=== PATIENT | male | born 1965 ===

== ENCOUNTER 2018-05-08 21:18 | Observation (INO) | payer OTHER ==
[2018-05-08] MEDS ORDERED: Sodium Chloride 0.9% 1,000 ML IV STA (22:21)
--- NOTE | 2018-05-08 22:22 | ED PDOC ---
Lower Extremity Pain/Injury Time Seen by Provider: 05/08/18 21:30 Chief Complaint (Nursing): Lower Extremity Problem/Injury Chief Complaint (Provider): Lower Extremity Problem/Injury History Per: Patient, Family History/Exam Limitations: no limitations, language barrier Onset/Duration Of Symptoms: Days (x2) Additional Complaint(s): 52 y/o male with history of HTN and diabetes presents to ED complaining of left foot pain, onset x2 days ago. 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 Since then he has noticed the pain and swelling to his left foot. Patient denies fever, vomiting, diarrhea. Patient admits to not being compliant with diabetic medication and has not taken his medicine in over x2 months. PMD: Rufino @ [facility] [place] Past Medical History Reviewed: Historical Data, Nursing Documentation, Vital Signs Vital Signs: Last Vital Signs Temp 98.2 F 05/08/18 21:34 Pulse 74 05/08/18 21:34 Resp 18 05/08/18 21:34 BP 176/105 H 05/08/18 21:34 Pulse Ox 98 05/08/18 21:34 - Medical History PMH: Diabetes, HTN - Surgical History Surgical History: Tonsillectomy - Family History Family History: States: Unknown Family Hx - Social History Current smoker - smoking cessation education provided: No Alcohol: Occasional (weekends) Drugs: Denies - Home Medications Home Medications: Ambulatory Orders Medication Instructions Recorded RX: No Known Home Med 05/08/18 - Allergies Allergies/Adverse Reactions: Allergies Allergy/AdvReac Type Severity Reaction Status Date / Time No Known Allergies Allergy Verified 05/08/18 21:34 Review of Systems ROS Statement: Except As Marked, All Systems Reviewed And Found Negative Constitutional: Negative for: Fever Gastrointestinal: Negative for: Vomiting, Diarrhea Musculoskeletal: Positive for: Foot Pain (left) Physical Exam - Reviewed Nursing Documentation Reviewed: Yes Vital Signs Reviewed: Yes - Physical Exam Appears: Positive for: Well, Non-toxic, No Acute Distress Head Exam: Positive for: ATRAUMATIC, NORMOCEPHALIC Skin: Positive for: Normal Color, Warm, DRY Eye Exam: Positive for: EOMI, Normal appearance, PERRL ENT: Positive for: Normal ENT Inspection Neck: Positive for: Normal, Painless ROM Cardiovascular/Chest: Positive for: Regular Rate, Rhythm. Negative for: Murmur Respiratory: Positive for: Normal Breath Sounds. Negative for: Respiratory Distress Gastrointestinal/Abdominal: Positive for: Normal Exam, Soft. Negative for: Tenderness Back: Positive for: Normal Inspection. Negative for: L CVA Tenderness, R CVA Tenderness, Vertebral Tenderness Extremity: Positive for: Normal ROM, Other (abscess over the entire dorsum of left foot; 1 local point of nidus; cellulitis streaking around foot and up left ankle). Negative for: Deformity Neurologic/Psych: Positive for: Alert, Oriented. Negative for: Motor/Sensory Deficits - Laboratory Results Result Diagrams: 05/08/18 22:35 05/08/18 22:35 - ECG O2 Sat by Pulse Oximetry: 98 (RA) Pulse Ox Interpretation: Normal Medical Decision Making Medical Decision Making: Time: 22:20 Initial Impression: diabetic abscess w cellulitis lower extremity Initial Plan: * CMP * CBC w/ diff * IV Fluids * Unasyn IVBP * Blood culture * Urine C&S * RAD - Left foot * UA will ocver w antibiotics, order xray, podiatrty aware of pt for am consult. iv abx ordered for cellulitis. 01:04 --Dr. Slaughter hospitalist accepted patient to his service. Patient will be admitted to observation due to uncontrolled diabetes, abscess and cellulitis. --Spoke to podiatry resident; square dance caller programmer engineering and scientific, Dr. Bhakta will see patient in the hospital in the morning. Scribe Attestation: Documented by Miguel Henry acting as a scribe for Judy Lowery MD. Provider Scribe Attestation: All medical record entries made by the Scribe were at my direction and personally dictated by me. I have reviewed the chart and agree that the record accurately reflects my personal performance of the history, physical exam, medical decision making, and the department course for this patient. I have also personally directed, reviewed, and agree with the discharge instructions and disposition. Disposition - Clinical Impression Clinical Impression: Cellulitis, Abscess - Patient ED Disposition Is Patient to be Admitted: Yes Counseled Patient/Family Regarding: Studies Performed, Diagnosis, Need For Followup - Disposition Disposition Time: 01:01 Condition: STABLE - Pt Status Changed To: Hospital Disposition Of: Observation - POA Present On Arrival: None
[2018-05-08 22:45] LABS: BASO # 0.1 K/uL (0.0-0.2); BASO % 0.9 % (0.0-2.0); EOS # 0.2 K/uL (0.0-0.7); HEMOGLOBIN 15.6 g/dL (12.0-18.0); LYMPH # 2.5 K/uL (1.0-4.3); LYMPH % 22.2 % (20.0-40.0); MEAN CELL VOLUME 90.4 fl (80.0-94.0); MEAN CORPUSCULAR HEMOGLOBIN 31.1 pg (27.0-31.0); MEAN CORPUSCULAR HGB CONC 34.4 g/dL (33.0-37.0); MEAN PLATELET VOLUME 8.9 fl (7.2-11.7); MONO # 0.9 K/uL (0.0-0.8); MONO % 8.3 % (0.0-10.0); NEUT # 7.5 K/uL (1.8-7.0); NEUT % 66.6 % (50.0-75.0); NRBC % 0.2 % (0.0-0.0); RBC 5.03 Mil/uL (4.40-5.90); RED CELL DISTRIBUTION WIDTH 13.1 % (11.5-14.5); WHITE BLOOD COUNT 11.2 K/uL (4.8-10.8)
[2018-05-08 22:47] LABS: URINE BILIRUBIN NEGATIVE (NEGATIVE); URINE BLOOD SMALL (NEGATIVE); URINE CLARITY CLEAR (Clear); URINE COLOR YELLOW (YELLOW); URINE GLUCOSE (UA) >=500 mg/dL (Normal); URINE LEUKOCYTE ESTERASE NEG Leu/uL (Negative); URINE PROTEIN NEGATIVE (NEGATIVE); URINE UROBILINOGEN 0.2-1.0 mg/dL (0.2-1.0)
[2018-05-08 22:53] LABS: ALB/GLOB RATIO 1.5 (1.0-2.1); ALBUMIN 4.2 g/dL (3.5-5.0); ALT/SGPT 87 U/L (21-72); AST/SGOT 30 U/L (17-59); BLOOD UREA NITROGEN 18 mg/dl (9-20); CALCIUM 9.3 mg/dL (8.4-10.2); GFR NON-AFRICAN AMERICAN > 60
[2018-05-08 23:08] LABS: URINE BACTERIA RARE (<OCC)
[2018-05-09] MEDS ORDERED: Insulin Regular 100 units/ml SC STA (00:10)
[2018-05-09] MEDS ORDERED: Insulin Regular 100 units/ml ONE ×4 (00:56→16:58)
--- NOTE | 2018-05-09 01:41 | CP.PCM.HP ---
<Heather Spain - Last Filed: 05/09/18 02:34> History of Present Illness - History of Present Illness History of Present Illness: CC: pain in L foot HPI: 52 YO Male with PMHx of HTN, and NIDDM presents to [facility] ED for L foot pain. Pt states that the pain started suddenly 2 days ago, moderate pain 6-7/10. No hx of trauma to the foot but pt does state that he has been wearing new tight boots for the past few days at work. Pain was associated with mild redness and swelling but over the past two days, the swelling has worsened along with increase redness and pain has also intensified. Pain is currently burning in nature, no radiation of the pain. Redness and swelling has expanded from the top of the foot to include the whole foot and edema has expanded to the distal tib/fib. Denies chest pain, dyspnea, palpitations, n/v/d/c, fever, chills. Of note, pt is non-compliant with his DM and HTN meds, last intake was more then 2 months ago. PMHx: HTN, NIDDM Surghx: denies FHx: hx of CAD in father and DM in mother SHx: hx of smoking 20yrs ago, 20 pack years, ETOH in the weekends and denies il licit drug use Meds: none Allergies: NKDA Present on Admission - Present on Admission Any Indicators Present on Admission: No Review of Systems - Constitutional Constitutional: absent: Chills, Fever - Cardiovascular Cardiovascular: absent: Chest Pain, Dyspnea, Palpitations - Respiratory Respiratory: absent: Cough, Dyspnea - Gastrointestinal Gastrointestinal: absent: Abdominal Pain, Nausea, Vomiting - Musculoskeletal Additional comments: L foot pain Past Patient History - Past Social History Smoking Status: Former Smoker Alcohol: Occasional Drugs: Denies Home Situation {Lives}: With Family - CARDIAC Hx Hypertension: Yes - ENDOCRINE/METABOLIC Hx Diabetes Mellitus Type 2: Yes - PSYCHIATRIC Hx Substance Use: No - SURGICAL HISTORY Hx Tonsillectomy: Yes Meds Allergies/Adverse Reactions: Allergies Allergy/AdvReac Type Severity Reaction Status Date / Time No Known Allergies Allergy Verified 05/08/18 21:34 Physical Exam - Constitutional Appears: No Acute Distress - Head Exam Head Exam: NORMAL INSPECTION - Eye Exam Eye Exam: EOMI, Normal appearance - ENT Exam ENT Exam: Mucous Membranes Moist - Respiratory Exam Respiratory Exam: Clear to Auscultation Bilateral, NORMAL BREATHING PATTERN. absent: Wheezes - Cardiovascular Exam Cardiovascular Exam: REGULAR RHYTHM, +S1, +S2 - GI/Abdominal Exam GI & Abdominal Exam: Normal Bowel Sounds, Soft. absent: Tenderness - Extremities Exam Extremities exam: Positive for: full ROM, normal inspection, pedal edema (1+ pitting edema up to the 1/3 thacker in LLE), tenderness (to palpation of the ant foot, L). Negative for: calf tenderness Additional comments: 3x3 cm induration noted in the ant L foot, no fluctuations appreciated, +tenderness to palpation of the area of induration Erythema and edema present in L foot, erythema present ant foot, edema noted throughout Results - Vital Signs Recent Vital Signs: Last Vital Signs Temp 98.7 F 05/08/18 23:26 Pulse 80 05/08/18 23:26 Resp 16 05/08/18 23:26 BP 135/84 05/08/18 23:26 Pulse Ox 98 05/09/18 01:37 - Labs Result Diagrams: 05/08/18 22:35 05/08/18 22:35 Labs: Laboratory Results - last 24 hr 05/08/18 05/08/18 05/08/18 21:45 22:35 22:35 WBC 11.2 H RBC 5.03 Hgb 15.6 Hct 45.4 MCV 90.4 MCH 31.1 H MCHC 34.4 RDW 13.1 Plt Count 245 MPV 8.9 Neut % (Auto) 66.6 Lymph % (Auto) 22.2 [place] % (Auto) 8.3 Eos % (Auto) 2.0 Baso % (Auto) 0.9 Neut # (Auto) 7.5 H Lymph # (Auto) 2.5 [place] # (Auto) 0.9 H Eos # (Auto) 0.2 Baso # (Auto) 0.1 Sodium 137 Potassium 4.4 Chloride 102 Carbon Dioxide 23 Anion Gap 16 BUN 18 Creatinine 0.9 Est GFR ( Amer) > 60 Est GFR (Non-Af Amer) > 60 POC Glucose (mg/dL) 243 H Random Glucose 263 H Calcium 9.3 Total Bilirubin 1.1 AST 30 ALT 87 H Alkaline Phosphatase 126 Total Protein 7.0 Albumin 4.2 Globulin 2.8 Albumin/Globulin Ratio 1.5 Urine Color Urine Clarity Urine pH Ur Specific [place] Urine Protein Urine Glucose (UA) Urine Ketones Urine Blood Urine Nitrate Urine Bilirubin Urine Urobilinogen Ur Leukocyte Esterase Urine RBC (Auto) Urine Microscopic WBC Urine Bacteria 05/08/18 05/08/18 22:35 23:55 WBC RBC Hgb Hct MCV MCH MCHC RDW Plt Count MPV Neut % (Auto) Lymph % (Auto) [place] % (Auto) Eos % (Auto) Baso % (Auto) Neut # (Auto) Lymph # (Auto) [place] # (Auto) Eos # (Auto) Baso # (Auto) Sodium Potassium Chloride Carbon Dioxide Anion Gap BUN Creatinine Est GFR ( Amer) Est GFR (Non-Af Amer) POC Glucose (mg/dL) 222 H Random Glucose Calcium Total Bilirubin AST ALT Alkaline Phosphatase Total Protein Albumin Globulin Albumin/Globulin Ratio Urine Color Yellow Urine Clarity Clear Urine pH 6.0 Ur Specific [place] 1.031 H Urine Protein Negative Urine Glucose (UA) >=500 Urine Ketones Trace Urine Blood Small Urine Nitrate Negative Urine Bilirubin Negative Urine Urobilinogen 0.2-1.0 Ur Leukocyte Esterase Neg Urine RBC (Auto) 2 Urine Microscopic WBC 1 Urine Bacteria Rare Assessment & Plan - Assessment and Plan (Free Text) Assessment: Assessment/Plan: 52 YO Male with PMHx of HTN, and NIDDM is admitted for cellulites. Cellulites, L foot -acute, with ant phlegmon -leukocytosis without neutrophilia, likely 2/2 to acute infection -lactic acid wnl -s/p IV vanc and unasyn in ED -c/w with Vanc IV -Vanc trough on 05/10 -U/s soft tissue L foot ordered, follow up -Pain management -podiatry consulted, follow up recs NIDDM -chronic, uncontrolled -non-compliance with PO meds -f/w HbA1c -Low dose insulin correcting, hypoglycemia protocol HTN -chronic -non-compliant with PO meds -cont to monitor BPs -consider starting JOSE RAFAEL/ARB DVT prolx -Lovenox SC <Chucho Slaughter - Last Filed: 05/09/18 05:48> Results - Vital Signs Recent Vital Signs: Last Vital Signs Temp 98.2 F 05/09/18 03:27 Pulse 85 05/09/18 03:27 Resp 18 05/09/18 03:27 BP 158/87 H 05/09/18 03:27 Pulse Ox 96 05/09/18 03:27 - Labs Result Diagrams: 05/08/18 22:35 05/08/18 22:35 Labs: Laboratory Results - last 24 hr 05/08/18 05/08/18 05/08/18 21:45 22:35 22:35 WBC 11.2 H RBC 5.03 Hgb 15.6 Hct 45.4 MCV 90.4 MCH 31.1 H MCHC 34.4 RDW 13.1 Plt Count 245 MPV 8.9 Neut % (Auto) 66.6 Lymph % (Auto) 22.2 [place] % (Auto) 8.3 Eos % (Auto) 2.0 Baso % (Auto) 0.9 Neut # (Auto) 7.5 H Lymph # (Auto) 2.5 [place] # (Auto) 0.9 H Eos # (Auto) 0.2 Baso # (Auto) 0.1 pO2 VBG pH VBG pCO2 VBG HCO3 VBG Total CO2 VBG O2 Sat (Calc) VBG Base Excess VBG Potassium Glucose Lactate FiO2 Sodium 137 Potassium 4.4 Chloride 102 Carbon Dioxide 23 Anion Gap 16 BUN 18 Creatinine 0.9 Est GFR ( Amer) > 60 Est GFR (Non-Af Amer) > 60 POC Glucose (mg/dL) 243 H Random Glucose 263 H Calcium 9.3 Total Bilirubin 1.1 AST 30 ALT 87 H Alkaline Phosphatase 126 Total Protein 7.0 Albumin 4.2 Globulin 2.8 Albumin/Globulin Ratio 1.5 Venous Blood Potassium Urine Color Urine Clarity Urine pH Ur Specific [place] Urine Protein Urine Glucose (UA) Urine Ketones Urine Blood Urine Nitrate Urine Bilirubin Urine Urobilinogen Ur Leukocyte Esterase Urine RBC (Auto) Urine Microscopic WBC Urine Bacteria 05/08/18 05/08/18 05/09/18 22:35 23:55 01:43 WBC RBC Hgb Hct MCV MCH MCHC RDW Plt Count MPV Neut % (Auto) Lymph % (Auto) [place] % (Auto) Eos % (Auto) Baso % (Auto) Neut # (Auto) Lymph # (Auto) [place] # (Auto) Eos # (Auto) Baso # (Auto) pO2 47 VBG pH 7.42 VBG pCO2 36 L VBG HCO3 24.0 VBG Total CO2 24.5 VBG O2 Sat (Calc) 88.2 H VBG Base Excess -0.6 L VBG Potassium 4.0 Glucose 272 H Lactate 1.6 FiO2 21.0 Sodium 133.0 Potassium Chloride 105.0 Carbon Dioxide Anion Gap BUN Creatinine Est GFR ( Amer) Est GFR (Non-Af Amer) POC Glucose (mg/dL) 222 H Random Glucose Calcium Total Bilirubin AST ALT Alkaline Phosphatase Total Protein Albumin Globulin Albumin/Globulin Ratio Venous Blood Potassium 4.0 Urine Color Yellow Urine Clarity Clear Urine pH 6.0 Ur Specific [place] 1.031 H Urine Protein Negative Urine Glucose (UA) >=500 Urine Ketones Trace Urine Blood Small Urine Nitrate Negative Urine Bilirubin Negative Urine Urobilinogen 0.2-1.0 Ur Leukocyte Esterase Neg Urine RBC (Auto) 2 Urine Microscopic WBC 1 Urine Bacteria Rare 05/09/18 03:25 WBC RBC Hgb Hct MCV MCH MCHC RDW Plt Count MPV Neut % (Auto) Lymph % (Auto) [place] % (Auto) Eos % (Auto) Baso % (Auto) Neut # (Auto) Lymph # (Auto) [place] # (Auto) Eos # (Auto) Baso # (Auto) pO2 VBG pH VBG pCO2 VBG HCO3 VBG Total CO2 VBG O2 Sat (Calc) VBG Base Excess VBG Potassium Glucose Lactate FiO2 Sodium Potassium Chloride Carbon Dioxide Anion Gap BUN Creatinine Est GFR ( Amer) Est GFR (Non-Af Amer) POC Glucose (mg/dL) 245 H Random Glucose Calcium Total Bilirubin AST ALT Alkaline Phosphatase Total Protein Albumin Globulin Albumin/Globulin Ratio Venous Blood Potassium Urine Color Urine Clarity Urine pH Ur Specific [place] Urine Protein Urine Glucose (UA) Urine Ketones Urine Blood Urine Nitrate Urine Bilirubin Urine Urobilinogen Ur Leukocyte Esterase Urine RBC (Auto) Urine Microscopic WBC Urine Bacteria Attending/Attestation - Attestation I have personally seen and examined this patient.: Yes I have fully participated in the care of the patient.: Yes I have reviewed all pertinent clinical information: Yes Notes (Text): 05/09/18 05:40 I saw, examined and discussed this patient with Dr Spain. I agree with the Assessment and plan above. This is a 52 years old male non compliant with his medication, comes with painful swelling to th eleft foot [id number] in diameter, the inner region has a 3cm diameter elevated ambler diameter, hyperpigmented, firm and not flocculent. We will do US of soft tissue and consut with Podiatry Dr Bhakta. Treat for Abscess with Cellulitis with Vancomycin. Follow Blood Culture Treat Diabetes Mellitus. Chucho Slaughter MD
[2018-05-09] MEDS ORDERED: Dextrose 50% SYRINGE Inj (50 ml) IV PRN (02:06)
[2018-05-09] MEDS ORDERED: Glucagon Recombinant 1 mg Inj IM PRN (02:06)
[2018-05-09 02:16] LABS: VENOUS BLOOD GAS BASE EXCESS -0.6 mmol/L (0.0-2.0); VENOUS BLOOD GAS PCO2 36 mmHg (40-60); VENOUS BLOOD GAS PO2 47 mm/Hg (30-55); VENOUS BLOOD PH 7.42 (7.32-7.43)
[2018-05-09] MEDS ORDERED: Vancomycin 1 g Inj ONE (04:36)
[2018-05-09 06:25] LABS: BASO # 0.1 K/uL (0.0-0.2); BASO % 0.6 % (0.0-2.0); EOS # 0.2 K/uL (0.0-0.7); EOS % 1.6 % (0.0-4.0); HEMOGLOBIN 14.7 g/dL (12.0-18.0); LYMPH # 2.2 K/uL (1.0-4.3); LYMPH % 22.3 % (20.0-40.0); MEAN CELL VOLUME 90.9 fl (80.0-94.0); MEAN CORPUSCULAR HEMOGLOBIN 30.7 pg (27.0-31.0); MEAN CORPUSCULAR HGB CONC 33.8 g/dL (33.0-37.0); MONO # 0.8 K/uL (0.0-0.8); MONO % 8.2 % (0.0-10.0); NEUT # 6.6 K/uL (1.8-7.0); NEUT % 67.3 % (50.0-75.0); NRBC % 0.1 % (0.0-0.0); RBC 4.78 Mil/uL (4.40-5.90); RED CELL DISTRIBUTION WIDTH 12.9 % (11.5-14.5); WHITE BLOOD COUNT 9.7 K/uL (4.8-10.8)
[2018-05-09 06:35] LABS: ALB/GLOB RATIO 1.5 (1.0-2.1); ALBUMIN 3.7 g/dL (3.5-5.0); ALT/SGPT 81 U/L (21-72); AST/SGOT 30 U/L (17-59); BLOOD UREA NITROGEN 17 mg/dl (9-20); CALCIUM 8.7 mg/dL (8.4-10.2); GFR NON-AFRICAN AMERICAN > 60
--- NOTE | 2018-05-09 07:53 | RAD ---
Date of service: 05/08/2018 PROCEDURE: Left Foot Radiographs. HISTORY: foot cellulitis COMPARISON: None. FINDINGS: BONES: No acute fracture or destructive bony lesion identified. No periosteal reaction or destructive bony lesion to suggest definite osteomyelitis. JOINTS: Normal. SOFT TISSUES: Diffuse soft tissue edema is appreciated without emphysematous changes or retained radiodense foreign body. OTHER FINDINGS: None. IMPRESSION: Diffuse cellulitis pattern suggested, compatible with clinical history, without obvious destructive bony lesion to suggest osteomyelitis at this time. No acute fracture dislocation left foot.
[2018-05-09] MEDS: Insulin Regular 100 units/ml SC SCH ×4 (08:02→22:26)
[2018-05-09] MEDS: Enoxaparin 40 mg Syringe SC SCH (09:49)
--- NOTE | 2018-05-09 11:14 | CP.PCM.CON ---
History of Present Illness - History of Present Illness History of Present Illness: Podiatry consult note for Dr. Acevedo 52M with pmhx of NIDDM and HTN seen and evaluated in the ED for left foot pain. Seen resting comfortably. States that he first noticed a red small bump on the top of his left foot on Wednesday and it was not painful. States that as the weekend went by he noticed the area more swollen and red and painful. States that he has not had history of any lesions like this and denies any hx of trauma to the area. States that he does tie his shoe laces tightly in the stop that presents as swollen and red now which he noticed when the bump got bigger and caused him more pain. Denies N/V/F/C/SOB/CP and has no other pedal complaints. PMHx - HTN, NIDDM PSHx - denies All - NKDA Past Patient History - Past Social History Alcohol: Occasional (weekends) Drugs: Denies - CARDIAC Hx Hypertension: Yes - ENDOCRINE/METABOLIC Hx Diabetes Mellitus Type 2: Yes - PSYCHIATRIC Hx Substance Use: No - SURGICAL HISTORY Hx Tonsillectomy: Yes Meds Allergies/Adverse Reactions: Allergies Allergy/AdvReac Type Severity Reaction Status Date / Time No Known Allergies Allergy Verified 05/08/18 21:34 - Medications Medications: Current Medications Acetaminophen (Tylenol 325mg Tab) 650 mg PO Q6 PRN PRN Reason: Fever >100.4 F Acetaminophen (Tylenol 325mg Tab) 650 mg PO Q6 PRN PRN Reason: Pain, moderate (4-7) Dextrose (Dextrose 50% Inj) 0 ml IV STAT PRN; Protocol PRN Reason: Hypoglycemia Protocol Dextrose (Glutose 15) 0 gm PO ONCE PRN; Protocol PRN Reason: Hypoglycemia Protocol Enoxaparin Sodium (Lovenox) 40 mg SC DAILY NICOLE; Protocol Last Admin: 05/09/18 09:49 Dose: 40 mg Glucagon (Glucagen Diagnostic Kit) 0 mg IM STAT PRN; Protocol PRN Reason: Hypoglycemia Protocol Vancomycin HCl 1 gm/ Sodium (Chloride) 250 mls @ 166.667 mls/hr IVPB Q12H NICOLE; Protocol Insulin Human Regular (Humulin R) 0 units SC ACHS NICOLE; Protocol Last Admin: 05/09/18 08:02 Dose: 2 units Physical Exam - Constitutional Appears: Well, Non-toxic, No Acute Distress - Head Exam Head Exam: ATRAUMATIC, NORMOCEPHALIC - Extremities Exam Additional comments: LLE focused Vasc: DP pulse palpable, PT nonpalpable secondary to mild pitting edema; cap refill <3 seconds to all digits; no pedal hair present; edema at the proximal aspect of the dorsal midfoot distal to the ankle joint Derm: no open lesions or wounds noted; no interdigital maceration noted; erythema noted to the proximal dorsal midfoot distal to the ankle joint; no streaking noted; no evidence of fluctuance at the raised site, lesion is solid in nature and is not mobile Ortho: pain on palpation to the dorsal raised lesion site, does not radiate; no other gross pathology noted Neuro: protective and gross sensation mildly diminished - Neurological Exam Neurological exam: Alert, Oriented x3 - Psychiatric Exam Psychiatric exam: Normal Affect, Normal Mood Results - Vital Signs Recent Vital Signs: Last Vital Signs Temp 98.2 F 05/09/18 03:27 Pulse 85 05/09/18 03:27 Resp 18 05/09/18 03:27 BP 158/87 H 05/09/18 03:27 Pulse Ox 98 05/09/18 06:26 - Labs Result Diagrams: 05/09/18 05:30 05/09/18 05:30 Labs: Laboratory Results - last 24 hr 05/08/18 05/08/18 05/08/18 21:45 22:35 22:35 WBC 11.2 H RBC 5.03 Hgb 15.6 Hct 45.4 MCV 90.4 MCH 31.1 H MCHC 34.4 RDW 13.1 Plt Count 245 MPV 8.9 Neut % (Auto) 66.6 Lymph % (Auto) 22.2 [place] % (Auto) 8.3 Eos % (Auto) 2.0 Baso % (Auto) 0.9 Neut # (Auto) 7.5 H Lymph # (Auto) 2.5 [place] # (Auto) 0.9 H Eos # (Auto) 0.2 Baso # (Auto) 0.1 pO2 VBG pH VBG pCO2 VBG HCO3 VBG Total CO2 VBG O2 Sat (Calc) VBG Base Excess VBG Potassium Glucose Lactate FiO2 Sodium 137 Potassium 4.4 Chloride 102 Carbon Dioxide 23 Anion Gap 16 BUN 18 Creatinine 0.9 Est GFR ( Amer) > 60 Est GFR (Non-Af Amer) > 60 POC Glucose (mg/dL) 243 H Random Glucose 263 H Calcium 9.3 Total Bilirubin 1.1 AST 30 ALT 87 H Alkaline Phosphatase 126 Total Protein 7.0 Albumin 4.2 Globulin 2.8 Albumin/Globulin Ratio 1.5 Venous Blood Potassium Urine Color Urine Clarity Urine pH Ur Specific [place] Urine Protein Urine Glucose (UA) Urine Ketones Urine Blood Urine Nitrate Urine Bilirubin Urine Urobilinogen Ur Leukocyte Esterase Urine RBC (Auto) Urine Microscopic WBC Urine Bacteria 05/08/18 05/08/18 05/09/18 22:35 23:55 01:43 WBC RBC Hgb Hct MCV MCH MCHC RDW Plt Count MPV Neut % (Auto) Lymph % (Auto) [place] % (Auto) Eos % (Auto) Baso % (Auto) Neut # (Auto) Lymph # (Auto) [place] # (Auto) Eos # (Auto) Baso # (Auto) pO2 47 VBG pH 7.42 VBG pCO2 36 L VBG HCO3 24.0 VBG Total CO2 24.5 VBG O2 Sat (Calc) 88.2 H VBG Base Excess -0.6 L VBG Potassium 4.0 Glucose 272 H Lactate 1.6 FiO2 21.0 Sodium 133.0 Potassium Chloride 105.0 Carbon Dioxide Anion Gap BUN Creatinine Est GFR ( Amer) Est GFR (Non-Af Amer) POC Glucose (mg/dL) 222 H Random Glucose Calcium Total Bilirubin AST ALT Alkaline Phosphatase Total Protein Albumin Globulin Albumin/Globulin Ratio Venous Blood Potassium 4.0 Urine Color Yellow Urine Clarity Clear Urine pH 6.0 Ur Specific [place] 1.031 H Urine Protein Negative Urine Glucose (UA) >=500 Urine Ketones Trace Urine Blood Small Urine Nitrate Negative Urine Bilirubin Negative Urine Urobilinogen 0.2-1.0 Ur Leukocyte Esterase Neg Urine RBC (Auto) 2 Urine Microscopic WBC 1 Urine Bacteria Rare 05/09/18 05/09/18 05/09/18 03:25 05:30 05:30 WBC 9.7 RBC 4.78 Hgb 14.7 Hct 43.4 MCV 90.9 MCH 30.7 MCHC 33.8 RDW 12.9 Plt Count 217 MPV 9.0 Neut % (Auto) 67.3 Lymph % (Auto) 22.3 [place] % (Auto) 8.2 Eos % (Auto) 1.6 Baso % (Auto) 0.6 Neut # (Auto) 6.6 Lymph # (Auto) 2.2 [place] # (Auto) 0.8 Eos # (Auto) 0.2 Baso # (Auto) 0.1 pO2 VBG pH VBG pCO2 VBG HCO3 VBG Total CO2 VBG O2 Sat (Calc) VBG Base Excess VBG Potassium Glucose Lactate FiO2 Sodium 139 Potassium 4.4 Chloride 108 H Carbon Dioxide 22 Anion Gap 13 BUN 17 Creatinine 0.9 Est GFR ( Amer) > 60 Est GFR (Non-Af Amer) > 60 POC Glucose (mg/dL) 245 H Random Glucose 257 H Calcium 8.7 Total Bilirubin 1.2 AST 30 ALT 81 H Alkaline Phosphatase 112 Total Protein 6.2 L Albumin 3.7 Globulin 2.5 Albumin/Globulin Ratio 1.5 Venous Blood Potassium Urine Color Urine Clarity Urine pH Ur Specific [place] Urine Protein Urine Glucose (UA) Urine Ketones Urine Blood Urine Nitrate Urine Bilirubin Urine Urobilinogen Ur Leukocyte Esterase Urine RBC (Auto) Urine Microscopic WBC Urine Bacteria 05/09/18 07:41 WBC RBC Hgb Hct MCV MCH MCHC RDW Plt Count MPV Neut % (Auto) Lymph % (Auto) [place] % (Auto) Eos % (Auto) Baso % (Auto) Neut # (Auto) Lymph # (Auto) [place] # (Auto) Eos # (Auto) Baso # (Auto) pO2 VBG pH VBG pCO2 VBG HCO3 VBG Total CO2 VBG O2 Sat (Calc) VBG Base Excess VBG Potassium Glucose Lactate FiO2 Sodium Potassium Chloride Carbon Dioxide Anion Gap BUN Creatinine Est GFR ( Amer) Est GFR (Non-Af Amer) POC Glucose (mg/dL) 239 H Random Glucose Calcium Total Bilirubin AST ALT Alkaline Phosphatase Total Protein Albumin Globulin Albumin/Globulin Ratio Venous Blood Potassium Urine Color Urine Clarity Urine pH Ur Specific [place] Urine Protein Urine Glucose (UA) Urine Ketones Urine Blood Urine Nitrate Urine Bilirubin Urine Urobilinogen Ur Leukocyte Esterase Urine RBC (Auto) Urine Microscopic WBC Urine Bacteria Assessment & Plan - Assessment and Plan (Free Text) Assessment: 52M with pmhx of NIDDM and HTN with left foot cellulitis Plan: Patient seen and evaluated Discussed in detail with Dr. Acevedo WBC 11.2 on presentation to ED, 9.7 today AM X-ray - negative for OM or any bony pathology Soft tissue US - taken, read pending, f/u Continue medications per medicine No podiatric intervention at this time Will follow patient while in house Thank you for the consult - Date & Time Date: 05/09/18 Time: 11:25
--- NOTE | 2018-05-09 13:38 | US ---
Date of service: 05/09/2018 PROCEDURE: Soft tissue ultrasound HISTORY: L foot cellulites with induration COMPARISON: May 08, 2018. Left foot radiographs TECHNIQUE: Standard protocol for this study/examination. FINDINGS: Edematous changes about the plantar aspect of the foot. This resides primarily in the subcutaneous tissues. A component of hypervascularity seen. IMPRESSION: Subcutaneous edema without focal collection or mass. Hypervascularity of the affected soft tissues attests either an acute infectious/inflammatory process. No drainable collection. Concordant findings (preliminary report) provided by ESSIE NAVA.
[2018-05-10] MEDS: Enoxaparin 40 mg Syringe SC SCH (08:07)
[2018-05-10] MEDS: Insulin Regular 100 units/ml SC SCH ×3 (08:08→17:19)
--- NOTE | 2018-05-10 12:32 | CP.PCM.PN ---
Subjective - Date & Time of Evaluation Date of Evaluation: 05/10/18 Time of Evaluation: 12:30 - Subjective Subjective: Podiatry progress note for Dr. Acevedo 52M seen and evaluated at bedside. Resting comfortably. States he believes the antibiotics are helping him and that the redness and swelling on his foot have gone down. Denies N/V/F/C/SOB/CP and has no other pedal complaints. Objective - Vital Signs/Intake and Output Vital Signs (last 24 hours): Temp Pulse Resp BP Pulse Ox 98 F 73 20 146/90 96 05/10/18 08:08 05/10/18 08:08 05/10/18 08:08 05/10/18 08:08 05/10/18 08:08 - Medications Medications: Current Medications Acetaminophen (Tylenol 325mg Tab) 650 mg PO Q6 PRN PRN Reason: Fever >100.4 F Acetaminophen (Tylenol 325mg Tab) 650 mg PO Q6 PRN PRN Reason: Pain, moderate (4-7) Last Admin: 05/09/18 23:06 Dose: 650 mg Dextrose (Dextrose 50% Inj) 0 ml IV STAT PRN; Protocol PRN Reason: Hypoglycemia Protocol Dextrose (Glutose 15) 0 gm PO ONCE PRN; Protocol PRN Reason: Hypoglycemia Protocol Enoxaparin Sodium (Lovenox) 40 mg SC DAILY [facility]; Protocol Last Admin: 05/10/18 08:07 Dose: 40 mg Glucagon (Glucagen Diagnostic Kit) 0 mg IM STAT PRN; Protocol PRN Reason: Hypoglycemia Protocol Vancomycin HCl 1 gm/ Sodium (Chloride) 250 mls @ 166.667 mls/hr IVPB Q12H [facility]; Protocol Last Admin: 05/10/18 10:59 Dose: 166.667 mls/hr Insulin Human Regular (Humulin R) 0 units SC ACHS [facility]; Protocol Last Admin: 05/10/18 08:08 Dose: 1 units Ketorolac Tromethamine (Toradol) 15 mg IVP Q6 PRN PRN Reason: Pain, severe (8-10) Lisinopril (Zestril) 20 mg PO DAILY [facility] Last Admin: 05/10/18 10:58 Dose: 20 mg Metformin HCl (Glucophage) 500 mg PO BIDWM [facility] Last Admin: 05/10/18 10:59 Dose: 500 mg - Labs Labs: 05/09/18 05:30 05/09/18 05:30 - Constitutional Appears: Well, Non-toxic, No Acute Distress - Head Exam Head Exam: ATRAUMATIC, NORMOCEPHALIC - Extremities Exam Additional comments: LLE focused Vasc: DP pulse palpable, PT nonpalpable secondary to mild pitting edema; cap refill <3 seconds to all digits; no pedal hair present; edema at the proximal aspect of the dorsal midfoot distal to the ankle joint - improving Derm: no open lesions or wounds noted; no interdigital maceration noted; erythema noted to the proximal dorsal midfoot distal to the ankle joint; no str eaking noted; possible evidence of fluctuance at the raised site, lesion is solid in nature and is not mobile Ortho: pain on palpation to the dorsal raised lesion site, does not radiate; no other gross pathology noted Neuro: protective and gross sensation mildly diminished - Neurological Exam Neurological Exam: Alert, Awake, Oriented x3 - Psychiatric Exam Psychiatric exam: Normal Affect, Normal Mood Assessment and Plan - Assessment and Plan (Free Text) Assessment: 52M with left foot cellulitis Plan: Patient seen and evaluated Discussed in detail with Dr. Acevedo Afebrile, absent leukocytosis (05/09) X-ray - negative for OM or any bony pathology Soft tissue US - edema without focal collection or mass, no drainable collection LLE CT w/o contrast ordered per medicine, believe mass is potentially fluctuant - f/u results Continue medications per medicine Will follow patient while in house
--- NOTE | 2018-05-10 16:27 | CT ---
Date of service: 05/10/2018 PROCEDURE: CT left foot HISTORY: Cellulitis, r/o abscess COMPARISON: Not available TECHNIQUE: 2.5 mm contiguous axial sections were acquired through the left foot. Sagittal and coronal images were reformatted from the axial scan. No intravenous contrast was administered for this examination. Total exam DLP: 321.51 mGy-cm This CT exam was performed using 1 or more of the following dose reduction techniques: Automated exposure control, adjustment of the mA and/or kV according to patient size, and/or use of iterative reconstruction technique. FINDINGS: There is no osseous fracture. There is no osseous erosion or periosteal reaction appreciated. The joint spaces and articular surfaces are preserved. There is extensive cutaneous thickening and edema of the subcutaneous soft tissues over the dorsal aspect of the foot consistent with cellulitis. There is no discrete collection suggestive of an abscess. There is no solid mass. IMPRESSION: Findings consistent with cellulitis over the dorsal aspect of the left foot. No evidence of abscess. No evidence of osteomyelitis. If there is clinical concern regarding osteomyelitis then evaluation with magnetic resonance imaging is advised.
[2018-05-10 17:02] VITALS: BP 114/72; PULSE 91; RESP 18; TEMP 99.7; O2SAT 97
--- NOTE | 2018-05-10 18:14 | CP.PCM.DIS ---
<Bruno Simms - Last Filed: 05/10/18 18:06> Provider - Provider Date of Admission: 05/09/18 01:00 Attending physician: Chucho Slaughter Time Spent in preparation of Discharge (in minutes): 35 Hospital Course - Lab Results Lab Results: Micro Results 05/08/18 02:30 Blood Blood Culture - Preliminary NO GROWTH AFTER 24 HOURS 05/08/18 22:35 Blood Blood Culture - Preliminary NO GROWTH AFTER 24 HOURS Most Recent Lab Values WBC 9.7 K/uL (4.8-10.8) 05/09/18 05:30 RBC 4.78 Mil/uL (4.40-5.90) 05/09/18 05:30 Hgb 14.7 g/dL (12.0-18.0) 05/09/18 05:30 Hct 43.4 % (35.0-51.0) 05/09/18 05:30 MCV 90.9 fl (80.0-94.0) 05/09/18 05:30 MCH 30.7 pg (27.0-31.0) 05/09/18 05:30 MCHC 33.8 g/dL (33.0-37.0) 05/09/18 05:30 RDW 12.9 % (11.5-14.5) 05/09/18 05:30 Plt Count 217 K/uL (130-400) 05/09/18 05:30 MPV 9.0 fl (7.2-11.7) 05/09/18 05:30 Neut % (Auto) 67.3 % (50.0-75.0) 05/09/18 05:30 Lymph % (Auto) 22.3 % (20.0-40.0) 05/09/18 05:30 [place] % (Auto) 8.2 % (0.0-10.0) 05/09/18 05:30 Eos % (Auto) 1.6 % (0.0-4.0) 05/09/18 05:30 Baso % (Auto) 0.6 % (0.0-2.0) 05/09/18 05:30 Neut # (Auto) 6.6 K/uL (1.8-7.0) 05/09/18 05:30 Lymph # (Auto) 2.2 K/uL (1.0-4.3) 05/09/18 05:30 [place] # (Auto) 0.8 K/uL (0.0-0.8) 05/09/18 05:30 Eos # (Auto) 0.2 K/uL (0.0-0.7) 05/09/18 05:30 Baso # (Auto) 0.1 K/uL (0.0-0.2) 05/09/18 05:30 pO2 47 mm/Hg (30-55) 05/09/18 01:43 VBG pH 7.42 (7.32-7.43) 05/09/18 01:43 VBG pCO2 36 mmHg (40-60) L 05/09/18 01:43 VBG HCO3 24.0 mmol/L 05/09/18 01:43 VBG Total CO2 24.5 mmol/L (22-28) 05/09/18 01:43 VBG O2 Sat (Calc) 88.2 % (40-65) H 05/09/18 01:43 VBG Base Excess -0.6 mmol/L (0.0-2.0) L 05/09/18 01:43 VBG Potassium 4.0 mmol/L (3.6-5.2) 05/09/18 01:43 Sodium 133.0 mmol/L (132-148) 05/09/18 01:43 Chloride 105.0 mmol/L (98-107) 05/09/18 01:43 Glucose 272 mg/dL (75-110) H 05/09/18 01:43 Lactate 1.6 mmol/L (0.7-2.1) 05/09/18 01:43 FiO2 21.0 % 05/09/18 01:43 Sodium 139 mmol/l (132-148) 05/09/18 05:30 Potassium 4.4 MMOL/L (3.6-5.0) 05/09/18 05:30 Chloride 108 mmol/L (98-107) H 05/09/18 05:30 Carbon Dioxide 22 mmol/L (22-30) 05/09/18 05:30 Anion Gap 13 (10-20) 05/09/18 05:30 BUN 17 mg/dl (9-20) 05/09/18 05:30 Creatinine 0.9 mg/dl (0.8-1.5) 05/09/18 05:30 Est GFR ( Amer) > 60 05/09/18 05:30 Est GFR (Non-Af Amer) > 60 05/09/18 05:30 POC Glucose (mg/dL) 177 mg/dL (65-110) H 05/10/18 16:14 Random Glucose 257 mg/dL (75-110) H 05/09/18 05:30 Hemoglobin A1c 9.6 % (4.2-6.5) H 05/09/18 05:30 Calcium 8.7 mg/dL (8.4-10.2) 05/09/18 05:30 Total Bilirubin 1.2 mg/dl (0.2-1.3) 05/09/18 05:30 AST 30 U/L (17-59) 05/09/18 05:30 ALT 81 U/L (21-72) H 05/09/18 05:30 Alkaline Phosphatase 112 U/L (38-126) 05/09/18 05:30 Total Protein 6.2 G/DL (6.3-8.2) L 05/09/18 05:30 Albumin 3.7 g/dL (3.5-5.0) 05/09/18 05:30 Globulin 2.5 gm/dL (2.2-3.9) 05/09/18 05:30 Albumin/Globulin Ratio 1.5 (1.0-2.1) 05/09/18 05:30 Venous Blood Potassium 4.0 mmol/L (3.6-5.2) 05/09/18 01:43 Urine Color Yellow (YELLOW) 05/08/18 22:35 Urine Clarity Clear (Clear) 05/08/18 22:35 Urine pH 6.0 (5.0-8.0) 05/08/18 22:35 Ur Specific [place] 1.031 (1.003-1.030) H 05/08/18 22:35 Urine Protein Negative mg/dL (NEGATIVE) 05/08/18 22:35 Urine Glucose (UA) >=500 mg/dL (Normal) 05/08/18 22:35 Urine Ketones Trace mg/dL (NEGATIVE) 05/08/18 22:35 Urine Blood Small (NEGATIVE) 05/08/18 22:35 Urine Nitrate Negative (NEGATIVE) 05/08/18 22:35 Urine Bilirubin Negative (NEGATIVE) 05/08/18 22:35 Urine Urobilinogen 0.2-1.0 mg/dL (0.2-1.0) 05/08/18 22:35 Ur Leukocyte Esterase Neg Timothy/uL (Negative) 05/08/18 22:35 Urine RBC (Auto) 2 /hpf (0-3) 05/08/18 22:35 Urine Microscopic WBC 1 /hpf (0-5) 05/08/18 22:35 Urine Bacteria Rare (<OCC) 05/08/18 22:35 Vancomycin Trough 6.5 ug/mL (5.0-10.0) 05/10/18 08:01 - Hospital Course Hospital Course: Pt is a 52 y/o male with hx of uncontrolled DM and HTN presents to [facility] with left leg pain and swelling and was admitted for cellulites. Pt was started on Vancomysin and his swelling improved. On day 2, he had a leg CT completed which rule out any drainable fluid collection. Blood cultures were negative. He was noted on labs to have hemoglobin a1c of 9.6 so he was started on Metformin 500mg BID. He was also started on Lisinopril 20mg daily for his HTN. Podiatry evaluated him and he was cleared for discharge to follow up with Dr. Acevedo and [facility]) in 1 week. Pt was discharged on 1 week of Clindamycin. Discharge Exam - Head Exam Head Exam: ATRAUMATIC, NORMOCEPHALIC - ENT Exam ENT Exam: Mucous Membranes Moist, Normal Oropharynx - Neck Exam Neck exam: Full Rom - Respiratory Exam Respiratory Exam: Chest Wall Tenderness. absent: Rhonchi, Wheezes - Cardiovascular Exam Cardiovascular Exam: REGULAR RHYTHM, +S1, +S2. absent: Systolic Murmur - GI/Abdominal Exam GI & Abdominal Exam: Normal Bowel Sounds, Soft. absent: Tenderness - Extremities Exam Extremities exam: normal capillary refill, pedal pulses present Additional comments: Erythema and edema (~3x3cm) present in L foot, erythema present ant foot, edema noted throughout. Improved overall since admission - Back Exam Back exam: absent: CVA tenderness (L) - Neurological Exam Neurological exam: Alert, Oriented x3 - Psychiatric Exam Psychiatric exam: Normal Affect - Skin Skin Exam: Normal Color Discharge Plan - Discharge Medications Prescriptions: Clindamycin [Cleocin] 300 mg PO Q6 7 Days #28 cap Lisinopril [Zestril] 20 mg PO DAILY 30 Days #30 tab metFORMIN [glucOPHAGE] 500 mg PO BIDWM 30 Days #60 tab - Follow Up Plan Condition: STABLE Disposition: HOME/ ROUTINE Instructions: Cellulitis and Erysipelas (Skin Infections), Skin Abscess, Cellulitis (DC), Cellulitis (GEN), Abscess (GEN) Additional Instructions: ff up with Dr Acevedo in 1 wk appt [facility] clinic in 1 wk Referrals: Jay Acevedo DPM [Staff Provider] - <Estefany Rivera - Last Filed: 05/10/18 18:19> Provider - Provider Date of Admission: 05/09/18 01:00 Attending physician: Chucho Slaughter [facility] Course - Lab Results Lab Results: Micro Results 05/08/18 22:35 Urine,Clean Catch Urine Culture - Final No Growth (<1,000 CFU/ML) 05/08/18 02:30 Blood Blood Culture - Preliminary NO GROWTH AFTER 24 HOURS 05/08/18 22:35 Blood Blood Culture - Preliminary NO GROWTH AFTER 24 HOURS Most Recent Lab Values WBC 9.7 K/uL (4.8-10.8) 05/09/18 05:30 RBC 4.78 Mil/uL (4.40-5.90) 05/09/18 05:30 Hgb 14.7 g/dL (12.0-18.0) 05/09/18 05:30 Hct 43.4 % (35.0-51.0) 05/09/18 05:30 MCV 90.9 fl (80.0-94.0) 05/09/18 05:30 MCH 30.7 pg (27.0-31.0) 05/09/18 05:30 MCHC 33.8 g/dL (33.0-37.0) 05/09/18 05:30 RDW 12.9 % (11.5-14.5) 05/09/18 05:30 Plt Count 217 K/uL (130-400) 05/09/18 05:30 MPV 9.0 fl (7.2-11.7) 05/09/18 05:30 Neut % (Auto) 67.3 % (50.0-75.0) 05/09/18 05:30 Lymph % (Auto) 22.3 % (20.0-40.0) 05/09/18 05:30 [place]y % (Auto) 8.2 % (0.0-10.0) 05/09/18 05:30 Eos % (Auto) 1.6 % (0.0-4.0) 05/09/18 05:30 Baso % (Auto) 0.6 % (0.0-2.0) 05/09/18 05:30 Neut # (Auto) 6.6 K/uL (1.8-7.0) 05/09/18 05:30 Lymph # (Auto) 2.2 K/uL (1.0-4.3) 05/09/18 05:30 [place]y # (Auto) 0.8 K/uL (0.0-0.8) 05/09/18 05:30 Eos # (Auto) 0.2 K/uL (0.0-0.7) 05/09/18 05:30 Baso # (Auto) 0.1 K/uL (0.0-0.2) 05/09/18 05:30 pO2 47 mm/Hg (30-55) 05/09/18 01:43 VBG pH 7.42 (7.32-7.43) 05/09/18 01:43 VBG pCO2 36 mmHg (40-60) L 05/09/18 01:43 VBG HCO3 24.0 mmol/L 05/09/18 01:43 VBG Total CO2 24.5 mmol/L (22-28) 05/09/18 01:43 VBG O2 Sat (Calc) 88.2 % (40-65) H 05/09/18 01:43 VBG Base Excess -0.6 mmol/L (0.0-2.0) L 05/09/18 01:43 VBG Potassium 4.0 mmol/L (3.6-5.2) 05/09/18 01:43 Sodium 133.0 mmol/L (132-148) 05/09/18 01:43 Chloride 105.0 mmol/L (98-107) 05/09/18 01:43 Glucose 272 mg/dL (75-110) H 05/09/18 01:43 Lactate 1.6 mmol/L (0.7-2.1) 05/09/18 01:43 FiO2 21.0 % 05/09/18 01:43 Sodium 139 mmol/l (132-148) 05/09/18 05:30 Potassium 4.4 MMOL/L (3.6-5.0) 05/09/18 05:30 Chloride 108 mmol/L (98-107) H 05/09/18 05:30 Carbon Dioxide 22 mmol/L (22-30) 05/09/18 05:30 Anion Gap 13 (10-20) 05/09/18 05:30 BUN 17 mg/dl (9-20) 05/09/18 05:30 Creatinine 0.9 mg/dl (0.8-1.5) 05/09/18 05:30 Est GFR ( Amer) > 60 05/09/18 05:30 Est GFR (Non-Af Amer) > 60 05/09/18 05:30 POC Glucose (mg/dL) 177 mg/dL (65-110) H 05/10/18 16:14 Random Glucose 257 mg/dL (75-110) H 05/09/18 05:30 Hemoglobin A1c 9.6 % (4.2-6.5) H 05/09/18 05:30 Calcium 8.7 mg/dL (8.4-10.2) 05/09/18 05:30 Total Bilirubin 1.2 mg/dl (0.2-1.3) 05/09/18 05:30 AST 30 U/L (17-59) 05/09/18 05:30 ALT 81 U/L (21-72) H 05/09/18 05:30 Alkaline Phosphatase 112 U/L (38-126) 05/09/18 05:30 Total Protein 6.2 G/DL (6.3-8.2) L 05/09/18 05:30 Albumin 3.7 g/dL (3.5-5.0) 05/09/18 05:30 Globulin 2.5 gm/dL (2.2-3.9) 05/09/18 05:30 Albumin/Globulin Ratio 1.5 (1.0-2.1) 05/09/18 05:30 Venous Blood Potassium 4.0 mmol/L (3.6-5.2) 05/09/18 01:43 Urine Color Yellow (YELLOW) 05/08/18 22:35 Urine Clarity Clear (Clear) 05/08/18 22:35 Urine pH 6.0 (5.0-8.0) 05/08/18 22:35 Ur Specific [place] 1.031 (1.003-1.030) H 05/08/18 22:35 Urine Protein Negative mg/dL (NEGATIVE) 05/08/18 22:35 Urine Glucose (UA) >=500 mg/dL (Normal) 05/08/18 22:35 Urine Ketones Trace mg/dL (NEGATIVE) 05/08/18 22:35 Urine Blood Small (NEGATIVE) 05/08/18 22:35 Urine Nitrate Negative (NEGATIVE) 05/08/18: Urine Bilirubin Negative (NEGATIVE) 05/08/18: Urine Urobilinogen 0.2-1.0 mg/dL (0.2-1.0) 05/08/18 22:35 Ur Leukocyte Esterase Neg Timothy/uL (Negative) 05/08/18 22:35 Urine RBC (Auto) 2 /hpf (0-3) 05/08/18 22:35 Urine Microscopic WBC 1 /hpf (0-5) 05/08/18 22:35 Urine Bacteria Rare (<OCC) 05/08/18 22:35 Vancomycin Trough 6.5 ug/mL (5.0-10.0) 05/10/18 08:01 Attending/Attestation - Attestation I have personally seen and examined this patient.: Yes I have fully participated in the care of the patient.: Yes I have reviewed all pertinent clinical information, including history, physical exam and plan: Yes
== END 2018-05-10 18:45 | disposition home or self-care (01) ==
LOC: H.ER 21:18 → H.ERHOLD 05-09 01:00 → H.MEDSURG1 05-09 20:55
PROVIDERS: ADMIT Internal Medicine; ATTEND Internal Medicine
DX: L03.116 Cellulitis of left lower limb (principal); E11.65 Type 2 diabetes mellitus with hyperglycemia; I10 Essential (primary) hypertension; Z91.14 Patient's other noncompliance with medication regimen; Z91.19 Patient's noncompliance with other medical treatment and regimen; Z79.84 Long term (current) use of oral hypoglycemic drugs; Z87.891 Personal history of nicotine dependence
CPT/HCPCS: 36415; 73630; 73700; 76881; 80053; 80202; 81003; 82803; 82948; 83036; 85025; 87040; 87086; 96360; 96365; 96372; 99285; G0378; J0295; J1650; J1885; J7030